=== PATIENT | male | born 1970 | race African-American/Black ===

== ENCOUNTER 2023-11-10 18:54 | Emergency (ER) | payer MEDICAID, SELFPAY ==
[~2023-11-10] VITALS: Ht 177.8 cm; Wt 89.8 kg
[2023-11-10] MEDS ORDERED: CEPH500C PO (21:04)
[2023-11-10] MEDS: LIDOCAINE 1% MDV 20ML VIAL SC ONE (21:04)
[2023-11-10 21:45] VITALS: BP 157/90; TEMP 98.3; O2SAT 97
== END 2023-11-10 21:47 | disposition home or self-care (01) ==
LOC: M ED 18:54
DX: L03.011 Cellulitis of right finger (principal)
CPT/HCPCS: 10060; 73140; 99284; J0665

== ENCOUNTER 2023-11-17 13:13 | Inpatient (IN) | payer SELFPAY ==
[~2023-11-17] VITALS: Ht 180.3 cm; Wt 87.7 kg
[~2023-11-17 13:13] MED LIST: CEPH500C PO
[2023-11-17 17:39] LABS: BASO # 0.1 10^3/uL (0.0-0.2); BASO % 0.7 % (0.0-1.0); EOS # 0.2 10^3/uL (0.0-0.5); EOS % 3.5 % (0.0-3.0); HEMATOCRIT 43.1 % (42.0-52.0); HEMOGLOBIN 14.6 g/dl (13.5-17.5); LYMPH # 2.3 10^3/uL (1.5-5.0); LYMPH % 34.4 % (24.0-44.0); MEAN CORPUSCULAR HEMOGLOBIN 30.7 pg (27.0-33.0); MEAN CORPUSCULAR HGB CONC 33.9 g/dl (32.0-36.5); MEAN CORPUSCULAR VOLUME 90.5 fl (80.0-96.0); MONO # 0.5 10^3/uL (0.0-0.8); MONO % 6.8 % (2.0-8.0); NEUTROPHILS # 3.7 10^3/uL (1.5-8.5); NEUTROPHILS % 54.3 % (36.0-66.0); PLATELET COUNT, AUTOMATED 315 10^3/uL (150-450); RED BLOOD COUNT 4.76 10^6/uL (4.30-6.10); WHITE BLOOD COUNT 6.8 10^3/uL (4.0-10.0)
[2023-11-17 17:43] LABS: ERYTHROCYTE SEDIMENTATION RATE 66 mm/hr (0-20)
[2023-11-17 18:00] LABS: BLOOD UREA NITROGEN 15 MG/DL (9-23); CALCIUM LEVEL 9.4 MG/DL (8.5-10.1); CARBON DIOXIDE LEVEL 28 MMOL/L (20-31); CHLORIDE LEVEL 104 MMOL/L (98-107); GLOMERULAR FILTRATION RATE > 60.0 (>56); GLUCOSE, FASTING 100 MG/DL (60-100); POTASSIUM SERUM 4.5 MMOL/L (3.5-5.1); SODIUM LEVEL 138 MMOL/L (136-145)
[2023-11-17] MEDS: IBUPROFEN 800 MG TAB PO ONE (18:11)
[2023-11-17] MEDS ORDERED: VANCOMYCIN HCL 1,750 MG in IV FLUID PLACE HOLDER 1 EA IV ONE (19:15)
[2023-11-17] MEDS: PIPERACILLIN/TAZOBACTAM SOD 3.375 GM in D5W MINI-BAG PLUS 50 ML IV ONE (20:21)
[2023-11-17] MEDS: VANCOMYCIN HCL 1,000 MG, VIAL MATE ADAPTER 1 EACH in D5W 250 ML IV ONE (20:55)
[2023-11-17] MEDS: VANCOMYCIN HCL 750 MG, VIAL MATE ADAPTER 1 EACH in D5W 250 ML IV ONE (20:55)
[2023-11-17] MEDS ORDERED: IBUP200T46 PO (21:48)
[2023-11-17] MEDS ORDERED: CEPH500C PO (21:48)
[2023-11-17] MEDS ORDERED: HOME MED LIST COMPLETE! XX SCH (21:50)
[2023-11-17 23:57] LABS: PROCALCITONIN <0.04 ng/ml
[2023-11-18] VITALS (11 sets, daily range): BP systolic 112–170; BP diastolic 69–110; TEMP 97.3–98.1; O2SAT 93–99
[2023-11-18] MEDS: PIPERACILLIN/TAZOBACTAM SOD 3.375 GM in D5W MINI-BAG PLUS 50 ML IV SCH (01:54)
[2023-11-18] MEDS: KETOROLAC TROMETHAMINE 10 MG TAB PO PRN (02:34)
[2023-11-18 06:25] LABS: BLOOD UREA NITROGEN 14 MG/DL (9-23); CARBON DIOXIDE LEVEL 26 MMOL/L (20-31); CHLORIDE LEVEL 106 MMOL/L (98-107); GLOMERULAR FILTRATION RATE > 60.0 (>56); GLUCOSE, FASTING 96 MG/DL (60-100); POTASSIUM SERUM 4.5 MMOL/L (3.5-5.1); SODIUM LEVEL 138 MMOL/L (136-145)
[2023-11-18 06:26] LABS: HEMATOCRIT 38.8 % (42.0-52.0); HEMOGLOBIN 13.1 g/dl (13.5-17.5); MEAN CORPUSCULAR HEMOGLOBIN 30.3 pg (27.0-33.0); MEAN CORPUSCULAR HGB CONC 33.8 g/dl (32.0-36.5); MEAN CORPUSCULAR VOLUME 89.8 fl (80.0-96.0); PLATELET COUNT, AUTOMATED 265 10^3/uL (150-450); RED BLOOD COUNT 4.32 10^6/uL (4.30-6.10); WHITE BLOOD COUNT 5.4 10^3/uL (4.0-10.0)
[2023-11-18 06:31] LABS: PROCALCITONIN <0.04 ng/ml
[2023-11-18] MEDS: ENOXAPARIN 40MG/0.4ML SYRINGE (J1650 PER 10MG) SC SCH (09:00)
[2023-11-18] MEDS: VANCOMYCIN HCL 1,000 MG, VIAL MATE ADAPTER 1 EACH in D5W 250 ML IV SCH (10:13)
[2023-11-18] MEDS ORDERED: MORPHINE 2 MG/ML 1ML VIAL IV PRN (10:35)
[2023-11-18] MEDS ORDERED: ACETAMINOPHEN TAB 650MG DOSE (2X325MG) PO PRN (10:35)
[2023-11-18] MEDS ORDERED: ONDANSETRON 4MG 2ML VIAL As Ordered ONE (13:04)
[2023-11-18] MEDS ORDERED: fentaNYL 100 MCG/2 ML INJECTION As Ordered ONE (13:04)
[2023-11-18] MEDS ORDERED: ACETAMINOPHEN 1000MG 100ML IV BAG As Ordered ONE (13:04)
[2023-11-18] MEDS ORDERED: LIDOCAINE 2% 100MG/5ML SDV (FOR ANES.) As Ordered ONE (13:04)
[2023-11-18] MEDS ORDERED: dexmedeTOMIDine (4MCG/ML)200MCG/50ML BTL (PRECEDEX) As Ordered ONE (13:04)
[2023-11-18] MEDS ORDERED: MIDAZOLAM INJ 2MG/2ML VIAL As Ordered ONE (13:04)
[2023-11-18] MEDS ORDERED: ONDANSETRON 4MG 2ML VIAL IV PRN (13:35)
[2023-11-18] MEDS ORDERED: fentaNYL 100 MCG/2 ML INJECTION IV PRN (13:35)
[2023-11-18] MEDS: oxyCODONE 5MG TAB PO PRN (13:41)
[2023-11-18] MEDS: MORPHINE 2 MG/ML 1ML VIAL IV PRN (13:41)
[2023-11-18] MEDS ORDERED: PERCOCET 5MG/325MG TAB PO PRN (15:40)
[2023-11-18] MEDS: lisinopriL 5 MG TAB PO ONE (15:47)
[2023-11-18] MEDS: cloNIDine 0.1MG TABLET PO ONE (15:48)
[2023-11-18] MEDS: PERCOCET 5MG/325MG TAB PO PRN (20:16)
[2023-11-18] MEDS: BOOSTRIX VACCINE (TETANUS/DIPHTH/ACEL. PERTUSSIS) 0.5ML SYR IM ONE (20:36)
[2023-11-19 02:00] VITALS: BP 102/66; TEMP 97.3; O2SAT 96
[2023-11-19 06:11] VITALS: BP 102/68; TEMP 97.7; O2SAT 99
[2023-11-19 06:49] LABS: ALBUMIN 3.1 G/DL (3.2-5.2); ALKALINE PHOSPHATASE 77 U/L (46-116); ALT/SGPT 20 U/L (7.0-40); AST/SGOT 12 U/L (<34); BILIRUBIN,TOTAL 0.4 MG/DL (0.3-1.2); BLOOD UREA NITROGEN 14 MG/DL (9-23); CARBON DIOXIDE LEVEL 29 MMOL/L (20-31); CHLORIDE LEVEL 105 MMOL/L (98-107); CREATININE FOR GFR 1.32 MG/DL (0.70-1.30); GLOMERULAR FILTRATION RATE > 60.0 (>56); GLUCOSE, FASTING 95 MG/DL (60-100); POTASSIUM SERUM 4.9 MMOL/L (3.5-5.1); SODIUM LEVEL 137 MMOL/L (136-145); TOTAL PROTEIN 6.5 G/DL (5.7-8.2)
[2023-11-19] MEDS: VANCOMYCIN HCL 750 MG, VIAL MATE ADAPTER 1 EACH in D5W 250 ML IV SCH (09:49)
[2023-11-19 10:00] VITALS: BP 112/68; TEMP 98.1; O2SAT 94
[2023-11-19] MEDS: VANCOMYCIN HCL 500 MG in D5W MINI-BAG PLUS 100 ML IV SCH (11:08)
[2023-11-19 14:00] VITALS: BP 124/68; TEMP 97.7; O2SAT 94
[2023-11-19 20:00] VITALS: BP 123/69; TEMP 98.6; O2SAT 96
[2023-11-20 02:00] VITALS: BP_SYST 118; BP_SYST 133; BP_DIAS 62; BP_DIAS 72; TEMP 98.2; O2SAT 97
[2023-11-20 05:42] VITALS: BP 121/70; TEMP 98.4; O2SAT 99
[2023-11-20] MEDS ORDERED: BACT800T5 PO (07:50)
[2023-11-20] MEDS ORDERED: OXYC1TAB23 PO (07:53)
[2023-11-20] MEDS ORDERED: ACET1TAB37 PO (07:53)
[2023-11-20 08:14] LABS: HEMATOCRIT 41.5 % (42.0-52.0); HEMOGLOBIN 13.9 g/dl (13.5-17.5); MEAN CORPUSCULAR HEMOGLOBIN 30.3 pg (27.0-33.0); MEAN CORPUSCULAR HGB CONC 33.5 g/dl (32.0-36.5); MEAN CORPUSCULAR VOLUME 90.4 fl (80.0-96.0); PLATELET COUNT, AUTOMATED 297 10^3/uL (150-450); RED BLOOD COUNT 4.59 10^6/uL (4.30-6.10); WHITE BLOOD COUNT 6.7 10^3/uL (4.0-10.0)
[2023-11-20 08:36] LABS: C REACTIVE PROTEIN QUANTITATIV 1.3 MG/DL (<1.0); VANCOMYCIN LEVEL TROUGH 13.7 UG/ML (10.0-20.0)
[2023-11-20 09:32] VITALS: BP 121/71
[2023-11-20 10:00] VITALS: BP 119/71; TEMP 97.9; O2SAT 96
[2023-11-20 14:00] VITALS: BP 132/83; TEMP 97.7; O2SAT 100
== END 2023-11-20 16:04 | disposition home or self-care (01) | DRG 316 ==
LOC: M ED 13:13 → M ED INP 13:14 → OBSVTOIN 13:15 → EEVIPCON 13:15 → ENRESERV 23:04 → M MSPAV 11-18 00:31
PROVIDERS: ADMIT Internal Medicine; ATTEND General Practice
PROC: 0PBP0ZZ Excision of Right Metacarpal, Open Approach (ICD-10-PCS; principal; 2023-11-18 12:00)
DX: M86.141 Other acute osteomyelitis, right hand (principal); I10 Essential (primary) hypertension; L02.511 Cutaneous abscess of right hand; L03.011 Cellulitis of right finger; B95.62 Methicillin resistant Staphylococcus aureus infection as the cause of diseases classified elsewhere

== ENCOUNTER → 2023-11-24 | Outpatient (CLI) | payer MEDICAID, SELFPAY ==
[~2023-11-24] MED LIST changes: +ACET1TAB37 PO; +BACT800T5 PO; +IBUP200T46 PO; +OXYC1TAB23 PO
== END ==
LOC: M SOG 07:59
PROVIDERS: ATTEND Physician Assistant
DX: M79.641 Pain in right hand (principal)

== ENCOUNTER → 2023-12-01 | Outpatient (CLI) | payer MEDICAID, SELFPAY | LOC: M SOG 11-30 07:51 | PROVIDERS: ATTEND Physician Assistant | DX: M79.641 Pain in right hand (principal) ==